=== PATIENT | female | born 1990 | race Caucasian/White ===

== ENCOUNTER → 2021-05-14 | Outpatient (CLI) | payer BC ==
[~2021-05-14] MED LIST: COLACE 100MG C100 MG PO; FERROUS SULFAT325 M2 PO; IBUPROFEN600 MG PO; LORTAB 5-325 M1 EACH PO; SERTRALINE HCL50 MG PO
== END ==
LOC: KOH-I 13:22
DX: M25.561 Pain in right knee (principal)
CPT/HCPCS: 73564

== ENCOUNTER → 2021-10-14 | Outpatient (CLI) | payer BC, OTHER | LOC: CT 09:49 | DX: R51.9 Headache, unspecified (principal) | CPT/HCPCS: 70470; Q9967 ==

== ENCOUNTER → 2021-11-06 | Outpatient (CLI) | payer BC | LOC: EMI 10-28 14:00 | DX: R51.9 Headache, unspecified (principal); R90.89 Other abnormal findings on diagnostic imaging of central nervous system | CPT/HCPCS: 70553; A9577 ==

== ENCOUNTER → 2022-01-05 | Outpatient (CLI) | payer BC | LOC: KOH-I 12:25 | DX: M54.50 Low back pain, unspecified (principal) | CPT/HCPCS: 72100 ==